=== PATIENT | male | born 1950 | race Caucasian/White ===

== ENCOUNTER 2017-11-04 09:12 | Observation (INO) | payer OTHER ==
--- NOTE | 2017-11-04 09:24 | CPEKG ---
Heart Rate: 99 RR Interval: 606 P-R Interval: 192 QRSD Interval: 104 QT Interval: 376 QTC Interval: 483 P [place]: 75 QRS [place]: -25 T Wave [place]: 104 EKG Severity - ABNORMAL ECG - EKG Impression: SINUS RHYTHM EKG Impression: VENTRICULAR BIGEMINY EKG Impression: BIATRIAL ABNORMALITIES EKG Impression: BORDERLINE LEFT AXIS DEVIATION EKG Impression: BORDERLINE R WAVE PROGRESSION, ANTERIOR LEADS Electronically Signed By: Tristan Berrios 04-Nov-2017 13:34:15
[2017-11-04 09:43] LABS: PLATELET COUNT 142 10^3/uL (150-400)
--- NOTE | 2017-11-04 09:52 | EDPHY ---
HPI/HX/ROS/PE/MDM Narrative: CHIEF COMPLAINT: palpitations HPI: The patient is a 67-year-old male with a history of HTN and what sounds like SVT - some sort of fast heart rhythm that patient does not recall details of. Last night he and his both developed vomiting and diarrhea, which they believe is related to food poisoning. He was unable to take his morning medications. He then felt like his heart was "going crazy" and that his home BP measured low. He denies LOC. He initially stated he had chest pain, but on further discussion he states he had no actual pain, just the sensation of his heart beating harder than normal. REVIEW OF SYSTEMS: Aside from elements discussed in the HPI, a comprehensive 10-point review of systems was reviewed and is negative. PMH: Includes HTN, episode of abnormal heary rhythm. Patient states he has a disease where if he is given alpha-blockers, it will cause his heart to beat backwards and kill him. His sister also has this but he does not know name. SOCIAL HISTORY:Marred. Denies drug abuse. PHYSICAL EXAM: General:Patient is alert, in no acute distress. ENT:Eyes are normal to inspection. ENT inspection normal. Neck: Normal inspection. Full range of motion. Respiratory:No respiratory distress. Breath sounds normal bilaterally. Cardiovascular: Regular rate and rhythm. Strong peripheral pulses. Normal cap refill. Abdomen:The abdomen is nontender to palpation. There are no peritoneal signs. There are normal bowel sounds. Back: Normal to inspection. No tenderness to palpation. Skin: Normal color. No rash. Warm and dry. Extremities: Normal appearance. Full range of motion. Neuro: Oriented x3. Normal motor function. Normal sensory function. ED Course: The patient presents with nausea, vomiting, and chest pain. He has a history of arrhythmias. 10:13 AM- The patient continues to have runs of non-sustained V-tach. Due to his history of arrhythmias, I will consult with cardiology. He will be moved to room one. 10:15 AM- I spoke with Dr. Callaway, cardiology, regarding this patient. He agrees to consult and his nurse practitioner will evaluate this patient. 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 He has now converted spontaneously back to normal sinus rhythm. Dr. Callaway will be the admitting physician. MDM: This patient presents with palpitations in the setting of what sounds like a viral gastroenteritis. During his ED stay he had an episode of vomiting, diaphoresis, and runs of non-sustained VT, which prompted emergent cardiology consultation. The patient was then witnessed to developed rapid atrial fibrillation, which resolved spontaneously. The patient's troponin is negative. The etiology of his rhythm issues is unclear, and his history of his prior cardiac issues is difficult to interpret. He requires admission on the cardiology service and likely cath. - Data Points Imaging Results: Imaging Impressions Chest X-Ray 11/04/17 09:30 Impression: 1. Mild peribronchial thickening suggesting airways disease/bronchitis. 2. Probable old mild T8 compression fracture. Laboratory Results: Laboratory Results 11/04/17 09:33 11/04/17 09:33 11/04/17 11/04/17 11/04/17:33 09:33 09:33 WBC 9.71 10^3/uL H 10^3/uL (3.80-9.50) RBC 5.98 10^6/uL 10^6/uL (4.40-6.38) Hgb 17.8 g/dL H g/dL (13.7-17.5) Hct 50.3 % % (40.0-51.0) MCV 84.1 fL fL (81.5-99.8) MCH 29.8 pg pg (27.9-34.1) MCHC 35.4 g/dL g/dL (32.4-36.7) RDW 12.5 % % (11.5-15.2) Plt Count 142 10^3/uL L 10^3/uL (150-400) MPV 11.5 fL fL (8.7-11.7) Neut % (Auto) 86.9 % H % (39.3-74.2) Lymph % (Auto) 6.4 % L % (15.0-45.0) [place] % (Auto) 5.6 % % (4.5-13.0) Eos % (Auto) 0.6 % % (0.6-7.6) Baso % (Auto) 0.3 % % (0.3-1.7) Nucleat RBC Rel Count 0.0 % % (0.0-0.2) Absolute Neuts (auto) 8.44 10^3/uL H 10^3/uL (1.70-6.50) Absolute Lymphs (auto) 0.62 10^3/uL L 10^3/uL (1.00-3.00) Absolute Monos (auto) 0.54 10^3/uL 10^3/uL (0.30-0.80) Absolute Eos (auto) 0.06 10^3/uL 10^3/uL (0.03-0.40) Absolute Basos (auto) 0.03 10^3/uL 10^3/uL (0.02-0.10) Absolute Nucleated RBC 0.00 10^3/uL 10^3/uL (0-0.01) Immature Gran % 0.2 % % (0.0-1.1) Immature Gran # 0.02 10^3/uL 10^3/uL (0.00-0.10) Sodium 145 mEq/L mEq/L (135-145) Potassium 3.8 mEq/L mEq/L (3.5-5.2) Chloride 106 mEq/L mEq/L (97-110) Carbon Dioxide 23 mEq/l mEq/l (22-31) Anion Gap 16 mEq/L mEq/L (8-16) BUN 30 mg/dL H mg/dL (7-23) Creatinine 1.4 mg/dL H mg/dL (0.7-1.3) Estimated GFR 51 Glucose 113 mg/dL H mg/dL (70-100) Calcium 9.6 mg/dL mg/dL (8.5-10.4) Magnesium 1.9 mg/dL mg/dL (1.6-2.3) Troponin I 0.012 ng/mL ng/mL (0.000-0.034) Medications Given: Discontinued Medications Ondansetron HCl (Zofran) 4 mg IVP EDNOW ONE Stop: 11/04/17 10:09 Last Admin: 11/04/17 10:30 Dose: Not Given General Time Seen by Provider: 11/04/17 09:21 Initial Vital Signs: Initial Vital Signs Temperature (C) 36.8 C 11/04/17 09:15 Heart Rate 108 H 11/04/17 09:15 Respiratory Rate 18 11/04/17 09:15 Blood Pressure 142/107 H 11/04/17 09:15 O2 Sat (%) 98 11/04/17 09:15 O2 Delivery Mode Nasal Cannula O2 (L/minute) 2 Allergies/Adverse Reactions: alcohol Allergy (Uncoded 11/04/17 09:15) Home Medications: Medication Instructions Recorded Allopurinol [Allopurinol 100 MG 100 mg PO DAILY 11/04/17 (*)] Amlodipine Besylate/Benazepril 1 each PO DAILY 11/04/17 [Amlodipine-Benazepril 10-20 mg] Aspirin [Aspirin 81mg (*)] 81 mg PO DAILY 11/04/17 Atorvastatin Calcium [Lipitor 20 20 mg PO DAILY 11/04/17 mg (*)] Triamterene/Hydrochlorothiazid 1 each PO DAILY 11/04/17 [Triamterene-Hctz 37.5-25 mg Tb] Metoprolol Tartrate [Lopressor 25 25 mg PO BID #60 tab 11/05/17 mg (*)] Departure - Departure Disposition: [facility] Inpatient Acute Clinical Impression: Rapid atrial fibrillation, Non-sustained ventricular tachycardia Vomiting Qualifiers: Vomiting type: unspecified Vomiting Intractability: non-intractable Nausea presence: with nausea Qualified Code(s): R11.2 - Nausea with vomiting, unspecified Condition: Good Report Scribed for: Tristan Berrios Report Scribed by: Veronica Damian Date of Report: 11/04/17 Time of Report: 10:18 Physician Review and Approval Statement: Portions of this note were transcribed by an ED scribe. I personally performed the history, physical exam, and medical decision making; and confirm the accuracy of the information in the transcribed note.
[2017-11-04] MEDS ORDERED: ONDANSETRON 4 MG/2 ML VIAL IVP ONE (10:08)
--- NOTE | 2017-11-04 10:18 | CPEKG ---
Heart Rate: 151 RR Interval: 397 QRSD Interval: 96 QT Interval: 328 QTC Interval: 521 QRS [place]: -42 T Wave [place]: 102 EKG Severity - ABNORMAL ECG - EKG Impression: ATRIAL FIBRILLATION EKG Impression: LVH WITH SECONDARY REPOLARIZATION ABNORMALITY EKG Impression: PROBABLE INFERIOR INFARCT, OLD EKG Impression: PROLONGED QT INTERVAL Electronically Signed By: Tristan Berrios 04-Nov-2017 13:34:08
[2017-11-04] MEDS ORDERED: ASPIRIN 81 MG CHEWABLE TAB PO ONE (10:53)
[2017-11-04] MEDS ORDERED: ACETAMINOPHEN 325 MG TAB PO PRN (11:16)
--- NOTE | 2017-11-04 11:48 | GCON ---
[f rep st] CONSULTATION CARDIOLOGY CONSULTATION REASON FOR CONSULTATION: Chest pressure, nonsustained VT, atrial fibrillation with RVR. HISTORY OF PRESENT ILLNESS: The patient is a 67-year-old male with significant reported history that includes hypertension, hyperlipidemia, and what he describes as a rapid heart rate, possibly SVT, diagnosed greater than 10 years ago. Patient informs me he had been in his normal state of health, until this morning, in which he woke up with stomach cramps, nausea, and diarrhea. He does report that his significant other did have similar symptoms around the same time. He was reporting initial symptoms started around 4:00 this morning. He did go back to bed and reported again waking up at 7:15 this morning with more nausea and vomiting, reporting midsternal chest pain, also palpitations. He did report he took his blood pressure at that time, noting that his blood pressure was extremely low, 90/50. He reports it is usually 140/80. He also noted that the heart rate was around 120 beats per minute, which he reports his regular is around 50 beats per minute. This concerned him and came to our emergency department for further evaluation. Upon arrival, initial EKG was done, showing sinus rhythm, left axis deviation, possible left anterior fascicular block, poor R-wave progression in anterior leads. As time progressed in the emergency department, did notice that he did go into sinus rhythm with bigeminal PVCs, and then converted to an atrial fibrillation with rapid ventricular response, around 10:09, was noted that he had a 10-beat run of nonsustained ventricular tachycardia, in which he d return back into atrial fibrillation with RVR. This all coincided with some mild nausea and chest pain with reported palpitations. The patient was given IV fluids, and laboratory studies were drawn, noting troponin level was less 0.012. Magnesium was 1.9. Potassium was 3.8. At current time, after a liter of fluid, the patient reports palpitations, but has converted back to sinus rhythm, denying any further chest pressure at this time. Reports nausea also resolved. Noted occasionally to have sinus rhythm with PVCs. He reports no significant history of orthopnea, PND, edema, and denies any symptoms suggestive of TIA or CVA. He does report this morning initially with his chest pressure and palpitations, though, some lightheadedness and felt like near- syncope but no actual syncopal events. Denies any recent fevers or chills and reports not being around anyone sick. Denies any bleeding history. PAST MEDICAL HISTORY: Patient's past medical history does include hypertension , hyperlipidemia, gout, and previous smoker, quitting 40 years ago. He reports also a history of abnormal heart rate, in which he had an extremely fast heart rate, greater than 200 beats per second 10 years ago and was seen by a job setter at that time, reporting undergoing stress testing and was told it was fine. 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 Patient's reports previous myocardial infarction. PAST SURGICAL HISTORY: Includes hernia repair and a hemorrhoidectomy 7 years ago. FAMILY HISTORY: Patient reports really no significant family history of coronary artery disease, but his sister does have a history of SVT, multiple ablations, atrial fibrillation, and does have a permanent pacemaker. SOCIAL HISTORY: He is retired from [employer]. He is twice, currently engaged. He reports previous smoker of tobacco, quitting greater than 40 years ago. He reports no alcohol intake, feeling that he has an allergy to any alcohol. Denies any illicit drug use. ALLERGIES: The patient reports allergy to alcohol. States he has an allergy to "alpha blockers" due to his history of WPW. MEDICATIONS: Home medications include allopurinol 100 mg p.o. daily, atorvastatin 40 mg p.o. daily, Pepcid 20 mg p.o. daily, triamterene/ hydrochlorothiazide 37.5/25 mg 1 tablet daily, Norvasc 10 mg p.o. daily. REVIEW OF SYSTEMS: A 10-point review of systems done on patient all negative, except those mentioned above. PHYSICAL EXAMINATION: GENERAL APPEARANCE: Medium-built, well-groomed male. He is alert and oriented to person, place, time, and situation. Appears to be under no acute distress at the current time. VITAL SIGNS: Current blood pressure is 145/82. Heart rate is 82, in sinus rhythm on the monitor. Respirations 16, saturating 97% on 2 L nasal cannula. HEENT: Head is normocephalic. Lips and tongue are pink and moist, with no signs of cyanosis. Conjunctivae pink. NECK: Trachea is midline. +2 carotid pulses bilateral. No auscultated bruits, no jugular vein distention. RESPIRATORY: Lungs are clear to auscultation, no rhonchi, rales or wheezes. No accessory muscle use, no intercostal muscle retraction noted. CARDIAC: Regular rate, regular rhythm, S1, S2, no S3, S4, gallops, rubs or murmurs noted. ABDOMEN: Soft, nontender, bowel sounds x4 quadrants. No organomegaly. No palpable masses. SKIN: [place], warm, dry, no cyanosis, no clubbing, no peripheral edema. VASCULAR: +2 carotids bilateral, +2 radials bilateral, +2 dorsal pedal and posterior tibial pulses bilateral. LABORATORY STUDIES: Laboratory studies drawn on the ER visit show WBC of 9.71, hemoglobin of 17.8, hematocrit of 50.3, platelet count of 142, sodium 145, potassium 3.8, chloride 106, CO2 23, BUN 30, creatinine 1.4, glucose 113, calcium 9.6, magnesium 1.9. Troponin less than 0.012. STUDIES: Electrocardiogram is as mentioned above. Chest x-ray showing mild peribronchial thickening, suggesting airway disease, probable old T8 compression fracture, no acute cardiopulmonary process. ASSESSMENT AND PLAN: 1. Episode of chest pressure: Patient reporting episode of chest pressure with feeling of palpitations, reporting midsternal, this associated with nausea , vomiting, and profound diaphoresis. No acute ST or T-wave abnormalities noted on EKG. Initial troponin negative. At this time, will have the patient get a stat echocardiogram done to evaluate LV function. Depending on results, with the patient's significant cardiac risk factors, age, hypertension, hyperlipidemia, previous smoker, potentially patient will need to be further evaluated for possible cardiac ischemia. Will make him n.p.o., with ideally potentially taking him to the cardiac catheterization lab for further evaluation. 2. Nonsustained ventricular tachycardia: As mentioned above, concerning with the patient with multiple cardiac risk factors and chest pressure, again further evaluation for cardiac ischemia, possibly with coronary catheterization , depending on echocardiogram results. 3. Paroxysmal atrial fibrillation: Noted to have rapid ventricular response. Self converted with hydration, no significant electrolyte abnormalities, negative troponin. Pending echocardiogram. Will order a TSH. Will hold off any anticoagulation in anticipation that patient may need to go to cardiac catheterization lab. Will hold off on any AV peggy agents at this time, until further evaluated for cardiac ischemia. 4. Hypertension: Patient's blood pressure within acceptable limits at this time, noted to be mildly hypotensive this morning. Will continue to monitor. Depending on results of testing, will more than likely start patient back on home medications. 5. Renal insufficiency: Patient noted to have elevated BUN and creatinine on admission, did report nausea and vomiting with diarrhea this morning. IV hydration in the emergency department was given. Will monitor closely. 6. Code status: Patient is considered a full code at this time. Thank you for this consultation. We will be glad to follow along with you. /[id number]/MODL MTDD
--- NOTE | 2017-11-04 12:47 | PDPROPOC ---
Sedation Plan of Care Sedation Plan of Care: vital signs stable, mental status noted, patient educated of risks, benefits, alternatives, patient can tolerate sedation ASA Classification: ASA 2 Planned drugs: fentanyl, midazolam Mallampati Score: Class 2 Mallampati Reference Image: Patient passed 3-3-2 rule?: Yes
--- NOTE | 2017-11-04 12:48 | PDHPUP ---
History & Physical Update H&P update statement: This history and physical update is based on an assessment of the patient which was completed after admission or registration (within 24 hours), but prior to the surgery/procedure. 67 year old male with 3/10 sub sternal chest pain with Non Sustained VT. H&P update: H&P reviewed & patient examined
[2017-11-04] MEDS ORDERED: diphenhydrAMINE 25 MG CAP PO ONE (13:30)
[2017-11-04] MEDS ORDERED: DIAZEPAM 5 MG TAB PO ONE (13:30)
[2017-11-04] MEDS ORDERED: LIDOCAINE 1% 300 MG/30 ML SDV ONE (13:30)
[2017-11-04] MEDS ORDERED: NS 1,000 ML IV SCH (13:30)
[2017-11-04] MEDS ORDERED: NITROGLYCERIN 0.4 MG BTL SL PRN (13:30)
[2017-11-04] MEDS ORDERED: FAMOTIDINE 20 MG TAB PO ONE (13:30)
[2017-11-04] MEDS ORDERED: TEMAZEPAM 15 MG CAP PO PRN (13:30)
[2017-11-04] MEDS ORDERED: MIDAZOLAM 2 MG/2 ML VIAL ONE (13:30)
[2017-11-04] MEDS ORDERED: fentaNYL 100 MCG/2 ML INJ ONE (13:30)
[2017-11-04] MEDS ORDERED: IOPAMIDOL (ISOVUE-370) 150 ML BTL IV ONE (13:31)
[2017-11-04] MEDS ORDERED: ONDANSETRON 4 MG/2 ML VIAL ONE (13:37)
[2017-11-04] MEDS ORDERED: ATROPINE SULFATE 1 MG/10 ML SYR IVP PRN (14:43)
[2017-11-04] MEDS ORDERED: ONDANSETRON 4 MG/2 ML VIAL IVP PRN (14:43)
[2017-11-04] MEDS: LR 1,000 ML IV SCH (16:22)
--- NOTE | 2017-11-04 16:43 | ECHO ---
[email or web address] [address] [address] Main: [phone] Fax: [email or web address] Echocardiogram Name: MELINA BELTRÁN MR#: [id number] Study Date: 11/04/2017 Study Time: 11:03 AM Date of : 1950 Age: 67 year(s) Height: 172.7 cm (68 in.) Weight: 83.92 kg (185 lb.) BSA: 1.98 m2 Gender: Male Examination: Echo Indication: Chest pain/Atrial fibrillation/SOB Image Quality: Contrast: Requested by: Anselmo Alvarado BP: 147 mmHg/89 mmHg Heart Rate: Rhythm: Indication: Chest pain/Atrial fibrillation/SOB Procedure Staff Dairy Store Manager: Augusta Rodríguez [facility] Reading Physician: Yehuda Callaway Requesting Provider: Conclusions: Normal size left ventricle. Normal global systolic LV function. EF is 60 %. No regional wall motion abnormality. Grade 1 diastolic dysfunction (abnormal relaxation). Normal RV function. Trivial anterior pericardial effusion. Measurements: Chambers Valvular Assessment AV/MV Valvular Assessment TV/PV Normal Normal Normal Name Value Range Name Value Range Name Value Range Ao Salome (MM): 3.6 cm (2.2 cm-3.7 AV meanP mmHg ( - ) cm) MV E Vmax: 0.55 m/s ( - ) IVSd (2D): 1.0 cm (0.6 cm-1.1 MV A Vmax: 1.28 m/s ( - ) cm) MV E/A: 0.43 ( - ) LVDd (2D): 5.4 cm (4.2 cm-5.9 cm) LVDs (2D): 4.0 cm (2.1 cm-4 cm) LVPWd (2D): 0.8 cm (0.6 cm-1 cm) LVEF (MOD4): 60 % (>=55 %) Continued Measurements: Chambers Valvular Assessment AV/MV Name Value Name Value LADs: 3.8 cm MV E' Septal: 0.05 m/s LADs Lon.1 cm MV E/E' Septal: 10.10 Patient: MELINA BELTRÁN Study Date: 11/04/2017 Page 1 of 2 11:03 AM LA Area: 15.5 cm2 MV E/E' Lateral: 8.30 Findings: Left Ventricle: Normal size left ventricle. Normal global systolic LV function. EF is 60 %. No regional wall motion abnormality. Grade 1 diastolic dysfunction (abnormal relaxation). Right Ventricle: Normal size right ventricle. Normal RV function. Left Atrium: The left atrium is normal in size. Right Atrium: The right atrium is normal in size. Mitral Valve: The mitral valve is normal in appearance and function. Trivial mitral valve regurgitation. Aortic Valve: The aortic valve is normal in appearance and function. Tricuspid Valve: The tricuspid valve is normal in appearance and function. Trivial tricuspid valve regurgitation. Pulmonic Valve: The pulmonic valve is normal in appearance and function. Aorta: The aorta is normal. Pericardium: Trivial anterior pericardial effusion. (No Signature Object) Patient: MELINA BELTRÁN Study Date: 11/04/2017 Page 2 of 2 11:03 AM [id number]
[2017-11-04] MEDS: METOPROLOL TARTRATE 25 MG TAB PO SCH (21:03)
--- NOTE | 2017-11-05 00:10 | GPN ---
[f rep st] PROCEDURE NOTE DATE OF PROCEDURE: 11/04/2017 PROCEDURE PERFORMED: Diagnostic left heart catheterization. INDICATION FOR PROCEDURE: The patient is a pleasant 67-year-old gentleman who presented to [facility] with complaints of nausea, vomiting, and 3/10 substernal chest heaviness. He has a known history of hypertension, hyperlipidemia, and remote history of smoking. On telemetry he had r uns of nonsustained ventricular tachycardia. He states he was told he had a previous infarction by is treasurer at home. In the setting of ongoing 3/10 substernal chest heaviness coupled with his runs of ventricular tachyc ardia and other risk factors, decision was made to pursue diagnostic left heart catheterization. PROCEDURE: After informed consent was obtained, the patient was brought to the cardiac catheterizati on lab, where he was prepped and draped in a sterile fashion. Using 1% lidocaine, the right groin wa s anesthetized. Using the modified Seldinger technique, 6-[place] catheter was placed into the right common femoral artery without complications. A JL4.5 catheter was used to take images of the left co ronary anatomy in multiple projections. JL4 catheter was exchanged over a guidewire for a JR4 cathet er. JR4 catheter was used to take images of the right coronary artery in multiple projections. The JR4 catheter was exchanged over a guidewire for angled pigtail catheter. Angled pigtail catheter was used to cross the aortic valve. Left ventriculogram was performed. LVEDP was assessed. Aortic charlee ve gradient was assessed. Angled pigtail catheter was removed without complications. Imaging of the right common femoral artery site demonstrates appropriate placement of the 6-[place]yan sheath above the femoral bifurcation and was appropriate candidate for Angio-Seal deployment, which was done successf kathrine. FINDINGS: 1. Left main normal size and caliber. It bifurcates into left anterior descending and left circumfl ex coronary artery. No evidence of coronary disease within the left main. 2. Left anterior descending artery reaches the LV apex. There are multiple small diagonal branches. There is a 20% to 30% narrowing in the proximal portion of the LAD just distal to a large 1st septa l photographic developer and printer. The remainder of the LAD is free of coronary artery disease. 3. Circumflex vessel is a nondominant vessel. There is a moderate-sized 1st obtuse marginal, as wel l as 2nd obtuse marginal branch. There is no evidence of coronary disease within the circumflex or o btuse marginal branches. 4. The right coronary artery is a large caliber dominant vessel that bifurcates into PDA and PLV bra nch. There is no evidence of coronary disease within the right coronary artery. 5. Hemodynamics: LVEDP 11 mmHg. Aortic valve gradient none. LVEF 50% to 55%. CONCLUSION: 1. Mild luminal irregularity in the proximal left anterior descending of 20% to 30%. No other evide nce of coronary disease. 2. Low normal left ventricular function with left ventricular ejection fraction of 50% to 55%. 3. Normal left ventricular end-diastolic pressure. PLAN: 1. Would recommend medical management with aspirin 81 mg daily. 2. Initiate statin therapy with atorvastatin. 3. Supportive care the setting of GI illness. /[id number]/MODL
[2017-11-05 03:09] VITALS: O2SAT 97
[2017-11-05] MEDS: LR 1,000 ML IV SCH (04:38)
[2017-11-05 07:16] VITALS: BP 138/75; PULSE 52; RESP 18; TEMP 98
[2017-11-05] MEDS: METOPROLOL TARTRATE 25 MG TAB PO SCH (08:27)
[2017-11-05] MEDS ORDERED: ATORVASTATIN CALCIUM 20 MG TAB PO SCH (09:00)
[2017-11-05] MEDS ORDERED: BENAZEPRIL HCL 20 MG TAB PO SCH (09:00)
[2017-11-05] MEDS ORDERED: FAMOTIDINE 20 MG TAB PO SCH (09:00)
[2017-11-05] MEDS ORDERED: ALLOPURINOL 100 MG TAB PO SCH (09:00)
[2017-11-05] MEDS ORDERED: ASPIRIN 81 MG CHEWABLE TAB PO SCH (09:00)
--- NOTE | 2017-11-05 12:10 | ASMTCMCOM ---
CM Note CM Note Notes: 11/05/2017 Case Management Note Reviewed chart, discussed w/RN. Pt admitted for rapid afib and chest pain. There are no case management d/c needs identified d/t pt age, family support and activity levels prior to admission. There are no PT or OT evals ordered at this time. Case Management d/c poc: home independent with follow up as directed. Case Management available if needs change. Date Signed: 11/05/2017 12:09 PM Electronically Signed By:Mayte Luis RN
--- NOTE | 2017-11-05 12:45 | CPEKG ---
Heart Rate: 81 RR Interval: 741 P-R Interval: 188 QRSD Interval: 100 QT Interval: 392 QTC Interval: 455 P [place]: 54 QRS [place]: -49 T Wave [place]: 106 EKG Severity - ABNORMAL ECG - EKG Impression: SINUS RHYTHM EKG Impression: PROBABLE LEFT ATRIAL ABNORMALITY EKG Impression: LEFT ANTERIOR FASCICULAR BLOCK EKG Impression: LEFT VENTRICULAR HYPERTROPHY EKG Impression: PREVIOUS BIGEMINY IS NO LONGER NOTED Electronically Signed By: Jarvis Yanez 07-Nov-2017 12:51:06
--- NOTE | 2017-11-05 12:47 | PDCARPN ---
Cardiology Progress Note Assessment/Plan: Assessment: 1. Chest pain. Resolved. No flow limiting CAD on Left Heart Cath. 2. NSVT. No further events on telemetry 3. Paxroxysmal Afib. Episode of Afib noted on telemetry in the ER on Nov 04, 2017. 4. Nausea, Vomiting and Diarrhea: resolved. (most likely viral gastroenteritis - his had identical issues) 5. Essential hypertension Plan: -Stable for discharge home -Cardiology follow up with GORAN Gonzalez on Nov 12, 2017 with 3:15 check in time at [facility] [place] -Will need out patient heart monitor that he can obtain at follow up visit -Consider implantable loop recorder if heart monitor negative for PAF -return to out patient medications 11/05/17 12:49 Subjective: Mr. Campos is feeling well. No more chest pain. Nausea, Vomiting and Diarrhea have resolved. No new runs of non sustained VT on telemetry. No new runs of afib. Right groin site is stable wihout hematoma or echymosis. Distal pulse intact. Vital signs are stable. Note K is low at 3.3. Mg is 1.8. Mr. Campos and I discussed Paroxysmal Atrial Fibrillation. He has no known previous hx of PAF. He has a remote hx of SVT approximately 20 years ago. His CHADS VASC is 3. We discussed anticoagulation in detail and stroke risk reduction. He is not interested in starting anticoagulation. He is agreeable for cardiolgoy follow up and to wear heart monitor. If heart monitor does not reveal any PAF, would recommned Implantable loop recorder. Reviewed/Discussed With: multidisciplinary team Time Spent With Patient: 20 min Objective: Vital Signs (8 Hrs) Temp Pulse Resp BP Pulse Ox 11/05/17 07:15 36.7 C 52 L 18 138/75 H 97 Intake/Output (24 Hrs) 11/04/17 11/05/17 11/06/17 05:59 05:59 05:59 Intake Total 1587 Output Total 200 Balance 1387 Intake: Oral (ml) 460 IV Intake (ml) 1127 Output: Urine (ml) 200 Urinal 200 Other: Weight 84.7 kg Number of Voids Toilet 1 Urinal 1 Result Diagrams: 11/04/17 09:33 11/05/17 03:02 Cardiac Labs: Cardiac Lab Results (72 Hrs) 11/04/17 11/04/17 21:50 16:30 Troponin I 0.086 H 0.015 - Physical Exam Constitutional: WDWN Ears, Nose, Mouth, Throat: moist mucous membranes Cardiovascular: regular rate and rhythm, other (Right groin without hematoma or ecchymosis. ) ICD10 Worksheet Patient Problems: Problems Problem Status Onset Non-sustained ventricular tachycardia Acute Rapid atrial fibrillation Acute Vomiting Acute
[2017-11-05] MEDS ORDERED: POTASSIUM CL 20 MEQ/15 ML UDCUP PO SCH (13:00)
[2017-11-05] MEDS ORDERED: MAGNESIUM OXIDE 400 MG TAB PO ONE (13:00)
--- NOTE | 2017-11-05 13:37 | GDS ---
[f rep st] DISCHARGE SUMMARY INDICATION FOR ADMISSION: Nausea, vomiting and chest pain. DIAGNOSES AT TIME OF DISCHARGE: 1. Nonobstructive coronary artery disease. 2. Paroxysmal atrial fibrillation. 3. Viral gastroenteritis with nausea, vomiting, diarrhea. 4. Hypertension. 5. Hyperlipidemia. 6. Gout. HOSPITAL COURSE: The patient is a pleasant 67-year-old gentleman who was admitted to [facility] yesterday with complaints of nausea, vomiting and chest discomfort. In the emergency department, he was found to have brief runs of nonsustained ventricular tachycardia. He was also found to have an isolated episode of paroxysmal atrial fibrillation. At the time of my examination, he was complaining of 3/10 substernal chest pressure which he described as a heavy weight upon his chest. His initial troponin was negative. Echocardiogram performed in the ER demonstrated normal left ventricular size and function and a trivial pericardial effusion. In the setting of ongoing chest discomfort, he underwent emergent left heart catheterization. Left heart catheterization demonstrated 20% to 30% luminal narrowing of the proximal LAD, with no evidence of flow-limiting stenosis. The circumflex and right coronary artery are free of coronary artery disease. He did not require any intervention. He tolerated the procedure well. His complete 2-D echocardiogram demonstrated LVEF of 60%. He did have grade 1 diastolic dysfunction. Left and right atrial dimensions were within normal limits. He had no significant valvular abnormalities. He was transported from the slab tripper to [address] [place] [address] where he remained on heart monitoring throughout the course of his hospitalization. He did have occasional PVCs. He had no further runs of nonsustained ventricular tachycardia. He had no further episodes of paroxysmal atrial fibrillation. He was treated with supportive care for his nausea and vomiting, including Zofran and IV hydration. This morning, he was feeling well. His nausea, vomiting and diarrhea have resolved completely. He has returned back to baseline. The right groin site is free of any evidence of hematoma or ecchymosis. Distal pulses are intact. We did discuss at length paroxysmal atrial fibrillation. He does have a [id number] score of 3. We discussed the role of anticoagulation in the setting of a [id number] score of 3. He is not willing to initiate anticoagulation at this point, but he is agreeable to further workup with outpatient heart monitoring and consideration of an implantable loop recorder. He feels his atrial fibrillation was due to an acute viral illness coupled with not taking his morning medications. Of note, his potassium was slightly low on the morning of November 05 at 3.3. His magnesium was 1.8. He will be repleted with oral potassium and magnesium prior to discharge. I do not think that he will require long-term supplementation as he returns to a regular diet after getting over his viral gastroenteritis. Exam at time of discharge: Blood pressure 138/75, heart rate of 52 in sinus rhythm, oxygen saturation 97% on 1 L nasal cannula, respiratory rate of 18, temperature 36.7. He is awake, alert, oriented, and appropriate, in no apparent distress. There is no evidence of JVP or carotid bruits. His lungs are clear to auscultation bilaterally. Cardiac exam is S1, S2. Regular rate and rhythm. No murmurs, rubs, or gallops. The right groin site is free of the hematoma or ecchymosis. Distal pulses are intact. The legs are warm to palpation. Laboratory data at time of discharge: White blood cell count 9.7, hemoglobin 17.8, hematocrit 50.3, platelets 142. Sodium 144, potassium 3.3, chloride 107, bicarb 26, BUN 24, creatinine 1.2. Magnesium 1.8. AST 19, ALT 29, alkaline phosphatase 58, TSH 1.250. Total cholesterol 112, LDL 60, HDL 30, triglycerides 110. Data: Complete 2-D echocardiogram from November 04, 2017 demonstrates LVEF of 60 %. Grade 1 diastolic dysfunction. Normal left and right atrial dimensions. Trivial pericardial effusion without evidence of tamponade. No significant valvular disease. Diagnostic left heart catheterization performed November 04, 2017: 20% to 30% stenosis of the proximal LAD. The remainder of the LAD is free of coronary disease. No evidence of coronary disease within the circumflex or right coronary artery. LVEDP 11 mmHg. MEDICATIONS AT TIME OF DISCHARGE: 1. Metoprolol tartrate 25 mg p.o. b.i.d. 2. Amlodipine/benazepril 10/20 mg once daily. 3. Triamterene/hydrochlorothiazide 37.5/25 mg once daily. 4. Aspirin 81 mg daily. 5. Atorvastatin 20 mg daily. 6. Allopurinol 100 mg daily. PLAN: 1. The patient will be discharged home. 2. Patient has been given post left heart catheterization instructions. 3. Patient has been scheduled for followup with Whitney Gonzalez, on November 12, 2017, with check-in time at 3:15 at [place] [facility] here in [place]. 4. Patient will require outpatient heart monitor. 5. Patient will consider implantable loop recorder if outpatient heart monitor is unremarkable for evidence of paroxysmal atrial fibrillation. 6. Prior to discharge, he will receive supplemental potassium and magnesium. 45 minutes spent coordinating patient care. /[id number]/MODL MTDD
--- NOTE | 2017-11-05 16:23 | ASDISCHSUM ---
Discharge Information Plan Status:Home with No Needs Medically Cleared to Leave:11/04/2017 Discharge Date:11/05/2017 01:37 PM CM D/C Disposition:Home, Routine, Self-Care ADT D/C Disposition:Home, Routine, Self-Care Projected Discharge Date:11/05/2017 01:37 PM Transportation at D/C: Discharge Delay Reason: Follow-Up Date:11/05/2017 01:37 PM Discharge Slot: Final Diagnosis: Placement Information Patient Contact Information Contact Name:MANNIE Relationship:Other Address: Work Phone: City: [facility] Phone: State/Zip Code: Email: Financial Information Financial Class:Medicare Advantage Plans Primary Plan Desc:[employer] [facility] [employer] PLANS Primary Plan Number:[id number] Secondary Plan Desc: Secondary Plan Number: Assessment Information [facility] CM Progress Note CM Note CM Note Notes: 11/05/2017 Case Management Note Reviewed chart, discussed w/RN. Pt admitted for rapid afib and chest pain. There are no case management d/c needs identified d/t pt age, family support and activity levels prior to admission. There are no PT or OT evals ordered at this time. Case Management d/c poc: home independent with follow up as directed. Case Management available if needs change. Date Signed: 11/05/2017 12:09 PM Electronically Signed By:Mayte Luis RN LACE LACE Length of stay for Answers: 1 day current admission Acuity / Level of Answers: Yes Care: Did the patient have an inpatient admission? Comorbidities - select Answers: Other all that apply # of Emergency department Answers: 0 visits in the last 6 months Score: 5 Date Signed: 11/05/2017 04:22 PM Electronically Signed By:Mayte Luis RN Intervention Information Intervention Type:*DOMINGUEZ-Signed Date of Service:11/05/2017 09:49 AM Patient Type:Observation Staff Member:Ne Cristina Hours: Discipline: Severity: Comment:
== END 2017-11-05 13:37 | disposition home or self-care (01) ==
LOC: F2W 12:11
PROVIDERS: ADMIT Internal Medicine Cardiovascular Disease; ATTEND Internal Medicine Cardiovascular Disease
PROC: B2151ZZ Fluoroscopy of Left Heart using Low Osmolar Contrast (ICD-10-PCS; principal; 2017-11-04)
PROC: B2111ZZ Fluoroscopy of Multiple Coronary Arteries using Low Osmolar Contrast (ICD-10-PCS; principal; 2017-11-04)
PROC: 4A023N7 Measurement of Cardiac Sampling and Pressure, Left Heart, Percutaneous Approach (ICD-10-PCS; principal; 2017-11-04)
DX: R07.9 Chest pain, unspecified (principal); I25.10 Atherosclerotic heart disease of native coronary artery without angina pectoris; I48.0 Paroxysmal atrial fibrillation; A08.4 Viral intestinal infection, unspecified; I47.2 Ventricular tachycardia; I44.4 Left anterior fascicular block; I10 Essential (primary) hypertension; E78.5 Hyperlipidemia, unspecified; M10.9 Gout, unspecified; Z87.891 Personal history of nicotine dependence; Z82.49 Family history of ischemic heart disease and other diseases of the circulatory system
CPT/HCPCS: 71046; 93005; 93306; 93458; 99285; C1760; G0378; J1644; J2250; J2405; J3010; Q9967